=== PATIENT | female | born 1955 | race Caucasian/White ===

== ENCOUNTER → 2017-02-02 | Outpatient (CLI) | payer BC ==
--- NOTE | 2017-02-02 15:27 | RAD ---
CT scan of the chest without contrast 02/02/2017 Clinical history: History of abnormal chest x-ray. Technique: Unenhanced, contiguous, 5 mm axial sections were obtained through the chest. One or more of the following individualized dose reduction techniques were utilized for this study: 1. Automated exposure control. 2. Adjustment of the mA and/or kV according to patient size. 3. Use of iterative reconstruction technique. Findings: Comparison study is dated 01/13/2016. Mild to moderate scattered atherosclerotic plaque formation is seen involving the thoracic aorta and its branches. The thoracic aorta is mildly tortuous but tapers normally. Scattered coronary artery calcifications are seen. The heart is mildly enlarged. Small likely reactive mediastinal lymph nodes are again seen. No pulmonary mass or nodule is seen. No area of consolidation is noted. No pneumothorax or pleural effusion is seen. Linear bands of subsegmental atelectasis are seen involving the lingula and right middle lobe. Images through the upper abdomen demonstrate atherosclerotic calcification of the abdominal aorta. Very mild S-shaped curvature of the thoracolumbar spine is seen. Degenerative changes are seen involving the thoracic spine. Impression: No acute abnormality is seen.
== END | disposition home or self-care (01) ==
LOC: CT 15:00
PROVIDERS: ATTEND Internal Medicine Pulmonary Disease
DX: R91.8 Other nonspecific abnormal finding of lung field (principal)
CPT/HCPCS: 71250

== ENCOUNTER → 2018-02-07 | Outpatient (CLI) | payer BC | END | disposition home or self-care (01) | LOC: CT 11:14 | DX: Z13.89 Encounter for screening for other disorder (principal); Z13.83 Encounter for screening for respiratory disorder NEC (principal); K76.0 Fatty (change of) liver, not elsewhere classified; I25.10 Atherosclerotic heart disease of native coronary artery without angina pectoris; R91.8 Other nonspecific abnormal finding of lung field; Z87.891 Personal history of nicotine dependence | CPT/HCPCS: 71250 ==

== ENCOUNTER → 2021-07-11 | Outpatient (CLI) | payer MEDICARE ==
--- NOTE | 2021-07-11 17:25 | KCIC ---
EXAM: Right foot 3 views. HISTORY: Right foot pain. COMPARISON: None. FINDINGS: Three views of the right foot are obtained. No fractures are identified. Tarsometatarsal osteoarthritis is moderate to severe. First and fifth me tatarsophalangeal osteoarthritis are mild. A chronic fracture deformity is suspected at the base of t he fifth proximal phalanx. There are moderate plantar and posterior calcaneal spurs. IMPRESSION: 1. Moderate to severe tarsometatarsal and mild metatarsophalangeal osteoarthritis as above. Electronically signed by: Brodie Crystal MD (07/11/2021 5:23 PM) [id number]
== END ==
LOC: KCIC 14:21
PROVIDERS: ATTEND Internal Medicine Gastroenterology
DX: M19.071 Primary osteoarthritis, right ankle and foot (principal); M77.31 Calcaneal spur, right foot
CPT/HCPCS: 73630

== ENCOUNTER → 2022-01-21 | Outpatient (CLI) | payer MEDICARE ==
--- NOTE | 2022-01-21 14:50 | KCIC ---
EXAM: XR CHEST 2V 01/21/2022 2:14 PM CLINICAL INDICATION: Bronchitis, increasing shortness of breath for a few months. Former smoker. COMPARISON: CT chest 02/08/2028 TECHNIQUE: PA and lateral views of the chest FINDINGS: The heart is at the upper limit of normal in size, unchanged. Lungs are adequately expande d. There is no consolidation, pleural effusion, or pneumothorax. No pulmonary edema. No acute osseous abnormality. IMPRESSION: No acute cardiopulmonary abnormality. Electronically signed by: Edna Waterman MD (01/21/2022 2:48 PM) [id number]
== END ==
LOC: KCIC 14:10
PROVIDERS: ATTEND Internal Medicine Pulmonary Disease
DX: J40 Bronchitis, not specified as acute or chronic (principal); R06.02 Shortness of breath; Z87.891 Personal history of nicotine dependence
CPT/HCPCS: 71046

== ENCOUNTER → 2022-02-16 | Outpatient (CLI) | payer MEDICARE ==
--- NOTE | 2022-02-16 09:50 | KCIC ---
CT LOW DOSE LUNG SCREEN INDICATION: Lung cancer screening. Smoker 40 yrs., quit 3 yrs. ago. Asthma, COPD. History of nicotine dependence. COMPARISON STUDY: 02/07/2018. TECHNIQUE: Unenhanced axial images were obtained through the lungs and upper abdomen using low dose technique. Coronal and sagittal multiplanar reformatted images were also obtained. PQRS compliance statement: One or more of the following individualized dose reduction techniques were utilized for this examinat ion: 1. Automated exposure control 2. Adjustment of the mA and/or kV according to patient size 3. Use of iterative reconstruction technique FINDINGS: Lung Nodules: There are a couple tiny pulmonary nodules which are stable with public health representative nodule a s follows: Stable right upper lobe 4 mm nodule (series 6 image 68). Lungs and Airways: No pulmonary mass or consolidation. Normal central airways. Pleura: Normal pleural spaces. Heart and Mediastinum: The visualized portions of the thyroid gland are normal in size and attenuatio n. No axillary or supraclavicular lymphadenopathy. No mediastinal, hilar or retrocrural lymphadenopat hy. Cardiomegaly. Coronary artery atherosclerotic disease. Atherosclerosis of the thoracic aorta and branch vessels. Abdomen: Colonic diverticulosis. Bones and Soft Tissues: Degenerative changes of the spine. IMPRESSION: There are couple tiny pulmonary nodules which are stable Lung-RADS Category: 2 Management Recommendation: Follow up low-dose chest CT in one year. Electronically signed by: Raymond Palmer MD (02/16/2022 9:47 AM) [id number]
== END ==
LOC: KCIC CT 08:47
PROVIDERS: ATTEND Internal Medicine Pulmonary Disease
DX: Z12.2 Encounter for screening for malignant neoplasm of respiratory organs (principal); R91.8 Other nonspecific abnormal finding of lung field; I51.7 Cardiomegaly; I25.10 Atherosclerotic heart disease of native coronary artery without angina pectoris; I70.0 Atherosclerosis of aorta; Z87.891 Personal history of nicotine dependence
CPT/HCPCS: 71271